=== PATIENT | female | born 1985 | race Caucasian/White ===

== ENCOUNTER 2016-10-28 13:43 | Emergency (ER) | payer MEDICAID ==
[~2016-10-28] VITALS: Ht 167.6 cm; Wt 59.0 kg
[~2016-10-28 13:43] MED LIST: FERR-49; IBUP-1542 PO; PREN1TAB49
[2016-10-28 13:52] VITALS: Ht 167.6 cm; Wt 59.0 kg
[2016-10-28] MEDS ORDERED: D-ME473S18 PO (15:13)
[2016-10-28] MEDS ORDERED: IBUP400T22 PO (15:13)
[2016-10-28] MEDS ORDERED: AZIT250T94 PO (15:13)
--- NOTE | 2016-10-28 15:15 | ERD ---
ER Documentation Chief Complaint Date/Time DATE: 10/28/16 TIME: 15:[address] and cough X 2 weeks. Pt denies fever. HPI This 31-year-old female presents with a two-week history of cough which is slightly productive as well as sore throat. There is no history of fever. No history of vomiting, abdominal pain, neck stiffness, rashes. ROS All systems reviewed and are negative except as per history of present illness. Medications Home Meds Active Scripts Ibuprofen* (Motrin*) 400 Mg Tab, 400 MG PO Q6, #15 TAB Prov:CONCHIS BESS MD 10/28/16 Dextromethorphan Hb-Promethazine Hcl (Promethazine DM Syrup) 473 Ml Syrup, 5 ML PO Q6H Y for COUGH, #4 OZ Prov:CONCHIS BESS MD 10/28/16 Azithromycin* (Zithromax*) 250 Mg Tablet, 250 MG PO .ZPACK DIRECTED, #6 TAB TAKE 500 MG (2 TABS) THE FIRST DAY THEN 250 MG (1 TAB) DAYS 2-5 Prov:CONCHIS BESS MD 10/28/16 Ibuprofen* (Ibuprofen*) 600 Mg Tablet, 600 MG PO Q6, #20 TAB 0 Refills Prov:TITO ADAME MD 07/16/16 Reported Medications Ferrous Sulfate* (Feosol*) 1 Tab Tablet 12/24/10 Vits W-Ca,Fe,Fa(<1MG) () 1 Tab Tablet 12/24/10 Allergies Allergies: Coded Allergies: No Known Allergy (Unverified , 10/28/16) PMhx/Soc Medical and Surgical Hx: pt denies Medical Hx, pt denies Surgical Hx History of Surgery: No Anesthesia Reaction: No Hx Neurological Disorder: No Hx Respiratory Disorders: No Hx Cardiac Disorders: No Hx Psychiatric Problems: No Hx Miscellaneous Medical Probl: No Hx Alcohol Use: No Hx Substance Use: No Hx Tobacco Use: No Physical Exam Vitals Vital Signs Date Time Temp Pulse Resp B/P Pulse Ox O2 Delivery O2 Flow Rate FiO2 10/28/16 13:52 98.1 84 18 122/79 98 Physical Exam Const: [] Alert, not ill-appearing for Head: Atraumatic Eyes: Normal Conjunctiva ENT: Normal External Ears, Nose and Mouth. TMs and oropharynx normal. Neck: Full range of motion..~ No meningismus. Resp: Clear to auscultation bilaterally. Slight rhonchi without wheezing or rales. No retractions. Cardio: Regular rate and rhythm, no murmurs Abd: Soft, non tender, non distended. Normal bowel sounds Skin: No petechiae or rashes Back: No midline or flank tenderness Ext: No cyanosis, or edema Neur: Awake and alert Psych: Normal Mood and Affect Procedures/MDM Patient presents with symptoms of productive cough last 2 weeks. She has no signs of hypoxemia, respiratory distress, sepsis, signs or symptoms to suggest PE, acute coronary syndrome, pneumonia. She was treated with Zithromax, promethazine and ibuprofen. The patient was stable with no new complaints during the ER course. Clinically, there is no current evidence to suggest meningitis, sepsis, acute abdomen, pneumonia, acute coronary syndrome, pulmonary embolism, or any other emergent condition appearing to require further evaluation or hospitalization. The patient should certainly return for any new or worsening symptoms per the aftercare instructions. They should otherwise follow-up with her primary care doctor for reevaluation this week. Departure Diagnosis: Primary Impression: URI, acute Additional Impression: Sore throat Condition: Stable Patient Instructions: Acute Bronchitis Additional Instructions: Cheque otro vez con monge doctor primario en el proximo arredondo or regresa para mas o nueva simptomas. CONCHIS BESS MD Oct 28, 2016 15:15
== END 2016-10-28 15:25 | disposition home or self-care (01) ==
LOC: FTE 13:43
DX: J06.9 Acute upper respiratory infection, unspecified (principal)
CPT/HCPCS: 99284